=== PATIENT | male | born 1940 | race Caucasian/White ===

== ENCOUNTER 2019-12-26 09:31 | Inpatient (IN) | payer OTHER ==
[~2019-12-26] VITALS: Ht 190.5 cm; Wt 88.3 kg
[~2019-12-26 09:31] MED LIST: ASPIRIN81 M2 PO; FORTAMET1000 MG PO; IMDUR 30 MG TAB30 M1 PO; NOVOLOG100 UNIT/1 SUBQ; PLAVIX 75 MG TA75 M1 PO; PRINZIDE 20-251 EACH PO; VITAMIN D3 COM1 EACH PO
[2019-12-26 09:44] VITALS: BP 142/80
[2019-12-26] MEDS ORDERED: TRESIBA100 UNIT/1 SUBQ (09:51)
[2019-12-26] MEDS ORDERED: TOPROL XL50 MG PO (09:52)
[2019-12-26] MEDS ORDERED: NITROSTAT0.4 M1 SUBLING (09:52)
[2019-12-26 10:08] LABS: ABSOLUTE BASOPHILS 0.1 thou/uL (0.0-0.2); ABSOLUTE EOSINOPHILS 0.3 thou/uL (0.0-0.7); ABSOLUTE LYMPHOCYTES 1.7 thou/uL (0.8-5.3); ABSOLUTE MONOCYTES 0.7 thou/uL (0.0-1.2); ABSOLUTE NEUTROPHILS 6.1 thou/uL (1.6-8.1); BASOPHILS 1.2 %; EOSINOPHILS 2.9 %; HEMATOCRIT 37.3 % (42.0-52.0); HEMOGLOBIN 12.6 gm/dL (14.0-18.0); LYMPHOCYTES 18.8 %; MCH 31.1 pg (26.0-34.0); MCHC 33.8 g/dL (28.0-37.0); MCV 92.1 fL (80.0-100.0); MONOCYTES 7.5 %; MPV 8.9 fl. (7.2-11.1); NUCLEATED RBCS 0 /100WBC; PLATELET COUNT* 262 thou/uL (150-400); POLYS 69.6 %; RBC 4.06 mil/uL (4.50-6.00); RDW-CV 13.7 % (10.5-14.5); WBC 8.8 thou/uL (4.0-11.0)
[2019-12-26 10:13] LABS: CALCIUM 8.6 mg/dL (8.5-10.1); CREATININE 2.2 mg/dL (0.6-1.3); POTASSIUM 4.6 mmol/L (3.5-5.1)
[2019-12-26 10:15] LABS: APTT 25.9 Seconds (25.0-31.3); INR 1.1; PROTIME 11.2 Seconds (9.20-11.50)
[2019-12-26 10:23] LABS: ALBUMIN 3.3 g/dL (3.4-5.0); TOTAL BILIRUBIN 0.6 mg/dL (<0.1-1.0); TOTAL PROTEIN 6.8 g/dL (6.4-8.2)
[2019-12-26 12:18] LABS: URINE BILIRUBIN NEGATIVE (Negative); URINE BLOOD TRACE (Negative); URINE CLARITY CLEAR; URINE COLOR YELLOW; URINE GLUCOSE-RANDOM NEGATIVE (Negative); URINE KETONES NEGATIVE (Negative); URINE LEUKOCYTES-REFLEX NEGATIVE (Negative); URINE NITRITE-REFLEX NEGATIVE (Negative); URINE PROTEIN 2+ (Negative); URINE SPECIFIC GRAVITY >= 1.030 (1.005-1.030); URINE UROBILINOGEN 0.2 E.U./dl (0.2-1.0)
[2019-12-26 12:27] LABS: CASTS None Seen /LPF (None Seen); CRYSTALS None Seen /LPF (None Seen); MUCUS 0-3 Light strn/LPF (None Seen); SQUAMOUS 0-3 Few /LPF (0-3); URINE RBC None Seen /HPF (0-2); URINE WBC-REFLEX None Seen /HPF (0-5)
[2019-12-26 15:15] VITALS: BP 128/67
[2019-12-26 20:00] VITALS: BP 156/80
[2019-12-27] VITALS: BP 158/80
[2019-12-27 04:00] VITALS: BP 173/92
[2019-12-27 05:00] VITALS: BP 169/87
--- NOTE | 2019-12-27 07:34 | NUR ---
ASSUMED CARE OF PT AFTER REPORT AT 1930. PT A&OX3-4 AT THE START OF THE SHIFT. AT MIDNIGHT PT BECAME CONFUSED, FORGETFUL & IMPULSIVE. PT ALSO HAD EPISODE OF HALLUCINATION THAT THE WALL WAS MOVING AND THE CABINET WAS AN ELEVATOR. PT TRACING SR/PVC ON TELE. PT UPSTANDBY. PT DENIES ANY PAIN. PT TRANSFERRED TO RM 231. FALL PRECAUTIONS IN PLACE. CALL LIGHT WITHIN REACH.
[2019-12-27 08:00] VITALS: BP 168/85
--- NOTE | 2019-12-27 10:21 | NUR ---
CM INFORMED THAT THE PT HAD SOME CONFUSION OVERNIGHT. CM CONTACTED THE PT'S DPOA/GRANDDAUGHTER HANNA AND SHE INFORMS THAT THIS IS THE PT'S BASELINE. PT HAS BEEN 'MORE CONFUSED OVER THE PAST MONTH AND WANDERING OUTSIDE OF THE HOME'. PT CURRENTLY RESIDES AT HOME WITH HIS SON, AND HE AND HANNA TAKE TURNS STAYING AT HOME WITH HIM 27/12. PT INDEPENDENT WITH ADL'S, BUT NEEDS REMINDERS ABOUT WHEN TO TAKE MEDS AND EAT. PT USES A WALKER FOR MOBILITY. PT HAS 0 HX OF SNF. PT HAS HX OF HH WITH [facility] AND THE FAMILY IS OPEN TO HH WITH [facility] IF ORDERED AT D/C. CM WILL REMAIN AVAILABLE TO ASSIST AND FOLLOW NEEDED.
--- NOTE | 2019-12-27 11:14 | NUR ---
ASSUMED CARE OF PATIENT THIS AM AT 0730. PATIENT IS ALERT, CONFUSED, IMPULSIVE AND DIFFICULT TO REDIRECT. TELE SHOWS SR TO ST. PATIENT DENIES CHEST PAIN AND SOA. PATIENT IS UP IN THE ROOM FREQUENTLY. GAIT HAS BEEN STEADY THIS AM. PATIENT HAS BEEN ON FALL PRECAUTIONS AND BED ALARM IS ON. WILL CONTINUE TO MONITOR PATIENT SAFETY. CALL LIGHT IS IN REACH. PATIENT DOES NOT USE IT.
[2019-12-27 12:27] VITALS: BP 133/67
--- NOTE | 2019-12-27 13:17 | EKG ---
[place] [address] ELECTROCARDIOGRAM REPORT Name: MIGNON LE Room: [address] IN [facility].#: [id number] Admission: 12/26/19 Attend Phys: Avery Kapoor Discharge: Date of : 40 Date of Service: 12/26/19 0951 Report #: [id number] THIS REPORT FOR: //name// [facility] ED Test Date: 2019-12-26 Test Time: 09:51:23 Pat Name: MIGNON LE Department: Room: [facility] Gender: M Operators Teacher: : 1940 Requested By: Donny Lynch Order Number: [id number] MD: Trey Kenyon Measurements Intervals [place] Rate: 87 P: 37 ND: 205 QRS: 14 QRSD: 121 T: 149 QT: 396 QTc: 477 Interpretive Statements Sinus rhythm Ventricular premature complex Left bundle branch block Baseline wander in lead(s) V5,V6 Compared to ECG 05/07/2016 08:30:12 Left bundle-branch block now present Left ventricular hypertrophy no longer present Myocardial infarct finding no longer present Electronically Signed On 12-27-2019 13:17:24 CDT by Trey Kenyon [email or web address] <ELECTRONICALLY SIGNED> By: Trey Kenyon MD, [facility] 12/27/19 1317 0951 Trey Kenyon MD, [facility] /EPI
--- NOTE | 2019-12-27 16:30 | NUR ---
SOTERO was informed that pt is in need of transfer to [facility] psych. SOTERO faxed referral to [facility]. fax [phone] ph [phone]. SOTERO called intake at [facility] unit and spoke with intake to confirm they received referral and that they are reviewing for possible acceptance if bed available. Dr Kapoor to speak with psychiatrist at [facility]. [facility] to contact unit/nurse if able to accept after hours. Transfer form and ambulance form to be completed as well if accepted and SW placed forms on pt chart. If any updates on status of referral needed at any point, call [phone] which is [facility] unit and ask for intake.
[2019-12-27 17:59] VITALS: BP 142/60
[2019-12-28] VITALS: BP 130/65
[2019-12-28 09:00] VITALS: BP 156/98
--- NOTE | 2019-12-28 12:30 | NUR ---
SW followed up with [facility] at [facility] as they were willing to consider pt if pt still has needs for inpt psych. SW to fax updated information to inpt psych in case of continued need. Team presented pt was somewhat better today due to medications, has supplemental oxygen needs. DC planning psych vs home with family might not be possible vs placement. SW to continue to follow to assist with finalizing safe dc plan.
[2019-12-28 14:32] LABS: ALBUMIN 3.4 g/dL (3.4-5.0); CALCIUM 8.8 mg/dL (8.5-10.1); CREATININE 1.9 mg/dL (0.6-1.3); POTASSIUM 5.3 mmol/L (3.5-5.1); TOTAL BILIRUBIN 0.8 mg/dL (<0.1-1.0); TOTAL PROTEIN 7.1 g/dL (6.4-8.2)
[2019-12-28 14:59] LABS: ABSOLUTE BASOPHILS 0.1 thou/uL (0.0-0.2); ABSOLUTE EOSINOPHILS 0.1 thou/uL (0.0-0.7); ABSOLUTE LYMPHOCYTES 1.1 thou/uL (0.8-5.3); ABSOLUTE MONOCYTES 0.8 thou/uL (0.0-1.2); ABSOLUTE NEUTROPHILS 8.3 thou/uL (1.6-8.1); BASOPHILS 0.9 %; EOSINOPHILS 0.8 %; HEMATOCRIT 39.4 % (42.0-52.0); HEMOGLOBIN 13.2 gm/dL (14.0-18.0); LYMPHOCYTES 10.2 %; MCH 30.9 pg (26.0-34.0); MCHC 33.4 g/dL (28.0-37.0); MCV 92.4 fL (80.0-100.0); MONOCYTES 7.4 %; MPV 9.2 fl. (7.2-11.1); NUCLEATED RBCS 0 /100WBC; PLATELET COUNT* 273 thou/uL (150-400); POLYS 80.7 %; RBC 4.26 mil/uL (4.50-6.00); RDW-CV 13.7 % (10.5-14.5); WBC 10.3 thou/uL (4.0-11.0)
[2019-12-28 16:00] VITALS: BP 120/61
--- NOTE | 2019-12-28 18:24 | NUR ---
PT UP SBA WAS IN THE BED DURING THE AM AND UNCOMFORTABLE THEN WOKE UP AND WOULD NOT SIT STILL PT KEPT MOVING AROUND IN THE ROOM VERY UNSTEADY URINATED ON THE FLOOR MESSED WITH HIS BELONGINGS AND BECOMING AGITATED 2L NC WAS PUT ON PT THIS AM D/T LOW SATS 85 AND BELOW PT HAS DIFFICULTY KEEPING O2 ON AND HAS TO BE REMINDED PT NOW HAS A SITTER PT DISCONTINUED IV THIS AM AND TOO AGITATED TO TRY ANOTHER ONE MAY TRY TOMORROW IF NEED FOR IV LASIX CALL LIGHT IN REACH
[2019-12-28 20:00] VITALS: BP 139/78
[2019-12-29] VITALS: BP 151/76
[2019-12-29 04:00] VITALS: BP 169/67
[2019-12-29 05:18] LABS: HEMATOCRIT 37.4 % (42.0-52.0); HEMOGLOBIN 12.7 gm/dL (14.0-18.0); MCH 30.9 pg (26.0-34.0); MCHC 33.8 g/dL (28.0-37.0); MCV 91.3 fL (80.0-100.0); MPV 9.1 fl. (7.2-11.1); RBC 4.1 mil/uL (4.50-6.00); RDW-CV 13.9 % (10.5-14.5); WBC 8.1 thou/uL (4.0-11.0)
[2019-12-29 05:20] LABS: ALBUMIN 3.3 g/dL (3.4-5.0); MAGNESIUM 1.9 mg/dL (1.8-2.4); POTASSIUM 4.9 mmol/L (3.5-5.1); TOTAL BILIRUBIN 0.8 mg/dL (<0.1-1.0); TOTAL PROTEIN 6.8 g/dL (6.4-8.2)
[2019-12-29 09:00] VITALS: BP 133/70
[2019-12-29 12:16] VITALS: BP 133/65
[2019-12-29 16:27] VITALS: BP 146/52
--- NOTE | 2019-12-29 16:34 | NUR ---
PT ALERT AND ORIENTED X1 DROWSY SLEPT T/O DAY GOT UP A FEW TIMES TO URINATE PT IS UNSTEADY AND REQUIRES SBA ATE VERY WELL TODAY AND DM MEDS STARTED PT IS PLEASANT AND COOPERATIVE CALL LIGHT IN REACH BUT PT DOES NOT USE
[2019-12-29 19:50] VITALS: BP 140/60
[2019-12-30] VITALS: BP 117/65
[2019-12-30 04:00] VITALS: BP 144/75
[2019-12-30 08:19] VITALS: BP 121/63
[2019-12-30 12:31] VITALS: BP 145/60
[2019-12-30 13:42] LABS: ABSOLUTE BASOPHILS 0.1 thou/uL (0.0-0.2); ABSOLUTE EOSINOPHILS 0.5 thou/uL (0.0-0.7); ABSOLUTE LYMPHOCYTES 1.8 thou/uL (0.8-5.3); ABSOLUTE MONOCYTES 0.8 thou/uL (0.0-1.2); BASOPHILS 0.9 %; HEMATOCRIT 40.7 % (42.0-52.0); HEMOGLOBIN 13.5 gm/dL (14.0-18.0); LYMPHOCYTES 19.7 %; MCH 30.7 pg (26.0-34.0); MCHC 33.3 g/dL (28.0-37.0); MCV 92.4 fL (80.0-100.0); MONOCYTES 8.5 %; NUCLEATED RBCS 0 /100WBC; PLATELET COUNT* 291 thou/uL (150-400); POLYS 65.9 %; RBC 4.41 mil/uL (4.50-6.00); WBC 9.1 thou/uL (4.0-11.0)
[2019-12-30 13:49] LABS: CALCIUM 9.3 mg/dL (8.5-10.1); CREATININE 2.3 mg/dL (0.6-1.3); POTASSIUM 4.1 mmol/L (3.5-5.1)
[2019-12-30 14:00] LABS: ALBUMIN 3.5 g/dL (3.4-5.0); MAGNESIUM 1.8 mg/dL (1.8-2.4); TOTAL BILIRUBIN 0.6 mg/dL (<0.1-1.0); TOTAL PROTEIN 7.4 g/dL (6.4-8.2)
[2019-12-30 17:00] VITALS: BP 116/50
--- NOTE | 2019-12-30 19:05 | NUR ---
PT UP IN CHAIR T/O DAY DID HAVE VTACH EPISODES X2 EKG DONE AND PLAN FOR ECHO TOMORROW DISCUSSED WITH DR ADORNO NO S/SX PT DID NOT FEEL IT OR NOTICE THOUGH DISCUSSED WITH HOSPITALIST WELL SON CAME TO VISIT CALL LIGHT IN REACH PLEASANT AND COOPERATIVE UNSTEADY GAIT
[2019-12-30 20:00] VITALS: BP 149/50
[2019-12-31] VITALS: BP 132/51
[2019-12-31 04:00] VITALS: BP 142/72
[2019-12-31 08:00] VITALS: BP 132/66
[2019-12-31 10:19] LABS: CALCIUM 9.2 mg/dL (8.5-10.1); CREATININE 2.4 mg/dL (0.6-1.3)
[2019-12-31 10:37] LABS: CHOLESTEROL 118 mg/dL (<200); HDL CHOLESTEROL 33 mg/dL (>40); LDL CHOLESTEROL 63 mg/dL (<100); TC:HDL 3.6 Ratio (Not establshd); TRIGLYCERIDE 114 mg/dL (<150); VLDL 23 mg/dL (<40)
[2019-12-31 10:38] LABS: SERUM ASSESSMENT Clear
--- NOTE | 2019-12-31 11:12 | EKG ---
[place] [address] ELECTROCARDIOGRAM REPORT Name: MIGNON LE Room: [address] IN .R.#: [id number] Admission: 12/26/19 Attend Phys: Avery Kapoor Discharge: Date of : 40 Date of Service: 12/30/19 1719 Report #: [id number] THIS REPORT FOR: //name// [facility] Test Date: 2019-12-30 Test Time: 17:19:26 Pat Name: MIGNON LE Department: Room: [address] Gender: M Tree Killer: VISH : 1940 Requested By: Avery Kapoor Order Number: [id number] Elina MD: Robert Butterfield Measurements Intervals [place] Rate: 76 P: 22 KS: 186 QRS: -2 QRSD: 119 T: 139 QT: 427 QTc: 481 Interpretive Statements Sinus rhythm LVH with IVCD and secondary repol abnrm Anterior ST elevation, probably due to LVH Borderline prolonged QT interval Compared to ECG 12/26/2019 09:51:23 Left ventricular hypertrophy now present Early repolarization now present Ventricular premature complex(es) no longer present Electronically Signed On 12-31-2019 11:12:08 CDT by Robert Butterfield [email or web address] <ELECTRONICALLY SIGNED> By: Robert Butterfield MD, [facility] 12/31/19 1112 18 18 Robert Butterfield MD, [facility] /EPI
--- NOTE | 2019-12-31 11:13 | EKG ---
[place] [address] ELECTROCARDIOGRAM REPORT Name: MIGNON LE Room: [address] ADM IN .R.#: [id number] Admission: 12/26/19 Attend Phys: Avery Kapoor Discharge: Date of : 40 Date of Service: 12/30/19 1720 Report #: [id number] THIS REPORT FOR: //name// [facility] Test Date: 2019-12-30 Test Time: 17:20:12 Pat Name: MIGNON LE Department: Room: [address] Gender: M Medical Staffing Coordinator: VISH : 1940 Requested By: Avery Kapoor Order Number: [id number] Reading MD: Robert Butterfield Measurements Intervals [place] Rate: 71 P: 41 DC: 180 QRS: -2 QRSD: 125 T: 129 QT: 419 QTc: 456 Interpretive Statements Sinus rhythm Atrial premature complex Possible LVH with associated IVCD Compared to ECG 12/30/2019 17:19:26 Atrial premature complex(es) now present ST (T wave) deviation persists Electronically Signed On 12-31-2019 11:13:24 CDT by Robert Butterfield [email or web address] <ELECTRONICALLY SIGNED> By: Robert Butterfield MD, FAC 12/31/19 1113 1720 1720 Robert Butterfield MD, FAC /EPI
--- NOTE | 2019-12-31 12:10 | NUR ---
SW received call from [facility] and they are considering accepting pt to their memory care unit when pt is ready to dc. They are needing therapy notes and will need covid negative test within 24 to 48 hours of dc. SW to fax therapy notes today and will continue to follow to assist with finalizing safe dc placement possibly for tomorrow if pt medically ready to dc.
[2019-12-31 12:28] VITALS: BP 137/66
--- NOTE | 2019-12-31 13:44 | 2DMMODE ---
[place] [address] 2 D/M-MODE ECHOCARDIOGRAM Name: MIGNON LE Room: [address] IN [facility]#: [id number] Admission: 12/26/19 Attend Phys: Avery Kapoor Discharge: Date of : 40 Date of Service: 12/31/19 1344 Report #: [id number] THIS REPORT FOR: cc: Jessy De León MD, Lin W. MD Holkins, John M. MD [facility] ~ APPROVED REPORT Study performed: 12/31/2019 11:12:54 EXAM: Comprehensive 2D, Doppler, and color-flow Echocardiogram Patient Location: In-Patient Room #: [facility] Status: routine BSA: 2.23 HR: 63 bpm BP: 132/66 mmHg Rhythm: NSR Other Information Study Quality: Good Indications Abnormal ECG 2D Dimensions IVSd: 14.37 (7-11mm) LVOT Diam: 23.16 (18-24mm) LVDd: 61.77 mm PWd: 11.48 (7-11mm) Ascending Ao: 45.50 (22-36mm) LVDs: 53.06 (25-40mm) Aortic Root: 45.82 mm Volumes Left Atrial Volume (Systole) LA ESV Index: 52.60 mL/m2 Aortic Valve AoV Peak Elpidio.: 2.02 m/s AO Peak Gr.: 16.27 mmHg LVOT Max P.54 mmHg AO Mean Gr.: 8.64 mmHg LVOT Mean P.84 mmHg LVOT Max V: 0.62 m/s AO V2 VTI: 37.48 cm LVOT Mean V: 0.43 m/s ALAN (VTI): 1.58 cm2 LVOT V1 VTI: 14.10 cm AI [place]: 2.68 m/s2 [place] [address] 2 D/M-MODE ECHOCARDIOGRAM Name: MIGNON LE Room: [address] IN [facility]#: [id number] Admission: 12/26/19 Attend Phys: Avery Kapoor Discharge: Date of : 40 Date of Service: 12/31/19 1344 Report #: [id number] PHT: 429.85 ms Mitral Valve E/A Ratio: 1.20 MV Decel. Time: 161.61 ms MV E Max Elpidio.: 0.61 m/s MV PHT: 46.87 ms MVA (PHT): 4.69 cm2 TDI E/Lateral E': 5.08 E/Medial E': 5.08 Medial E' Elpidio.: 0.12 m/s Lateral E' Elpidio.: 0.12 m/s Left Ventricle The left ventricle is normal size. There is global hypokinesis of the left ventricle with inferobasilar akinesis. There is normal left ventricular wall thickness. Left ventricular ejection fraction is moderate to severely decreased. LVEF is 25-30%. Grade I - abnormal relaxation pattern. Right Ventricle The right ventricle is normal size. The right ventricular systolic function is normal. Atria Left atrium is moderately dilated. The right atrium size is normal. Aortic Valve Moderate aortic valve sclerosis. Moderate aortic regurgitation. Moderate aortic stenosis. Mitral Valve The mitral valve is normal in structure. Trace mitral regurgitation. No evidence of mitral valve stenosis. Tricuspid Valve The tricuspid valve is normal in structure. Trace tricuspid regurgitation. Unable to assess PA pressure. Pulmonic Valve The pulmonary valve is normal in structure. There is no pulmonic valvular regurgitation[place] [address] 2 D/M-MODE ECHOCARDIOGRAM Name: MIGNON LE Room: [address]#: [id number] Admission: 12/26/19 Attend Phys: Avery Kapoor Discharge: Date of : 40 Date of Service: 12/31/19 1344 Report #: [id number] The aortic root is normal in size. IVC is not well visualized. Pericardium There is no pericardial effusion. <Conclusion> The left ventricle is normal size. There is normal left ventricular wall thickness. Left ventricular ejection fraction is moderate to severely decreased. LVEF is 25-30%. Grade I - abnormal relaxation pattern. The right ventricle is normal size. Left atrium is moderately dilated. The right atrium size is normal. Moderate aortic valve sclerosis. Moderate aortic regurgitation. Moderate aortic stenosis. The mitral valve is normal in structure. Trace mitral regurgitation. The tricuspid valve is normal in structure. There is no pericardial effusion. There is global hypokinesis of the left ventricle with inferobasilar akinesis. <ELECTRONICALLY SIGNED> By: Robert Butterfield MD, FACC 12/31/19 1344 1344 1344 Robert Butterfield MD, FACC /INF
[2019-12-31 16:00] VITALS: BP 118/64
[2019-12-31 20:00] VITALS: BP 128/57
--- NOTE | 2019-12-31 20:04 | NUR ---
RECEIVED REPORT. ASSUMED CARE OF PT AROUND 0730. PT PLEASANT, ORIENTED TO SELF. AM ASSESSMENT AND VITALS COMPLETED CHARTED. MEDS PER EMAR. CIVIL ENGINEERING TEACHER IN PLACE. PT DENIED PAIN OR DISCOMFORT THIS SHIFT. WORKED WITH THERAPIES. CR TRENDING HIGH STILL, SO DC HELD FOR THAT. DC TO MEMORY CARE FACILITY IN THE WORKS. PT WITH GOOD APPETITE TODAY, ABLE TO TAKE A SHOWER WITH ASSISTANCE. PT CURRENTLY WATCHING TV IN BEDSIDE CHAIR. FALL PRECAUTIONS IN PLACE. CALL LIGHT IS WITHIN REACH. HOURLY ROUNDING PERFORMED.
[2020-01-01] VITALS: BP 119/50
[2020-01-01 04:00] VITALS: BP 108/49
[2020-01-01 05:29] LABS: HEMATOCRIT 38.7 % (42.0-52.0); HEMOGLOBIN 12.9 gm/dL (14.0-18.0); MCH 30.6 pg (26.0-34.0); MCHC 33.4 g/dL (28.0-37.0); MCV 91.8 fL (80.0-100.0); MPV 8.8 fl. (7.2-11.1); RBC 4.22 mil/uL (4.50-6.00); RDW-CV 14.3 % (10.5-14.5); WBC 10.4 thou/uL (4.0-11.0)
[2020-01-01 06:04] LABS: ALBUMIN 3.5 g/dL (3.4-5.0); CALCIUM 9.3 mg/dL (8.5-10.1); CREATININE 2.2 mg/dL (0.6-1.3); MAGNESIUM 1.8 mg/dL (1.8-2.4); POTASSIUM 3.6 mmol/L (3.5-5.1); TOTAL BILIRUBIN 0.5 mg/dL (<0.1-1.0); TOTAL PROTEIN 7.3 g/dL (6.4-8.2)
[2020-01-01 07:45] VITALS: BP 174/84
[2020-01-01] MEDS ORDERED: SEROQUEL 25 MG25 M1 PO (08:56)
[2020-01-01] MEDS ORDERED: GLUCOPHAGE1000 MG PO (08:56)
[2020-01-01] MEDS ORDERED: ZYPREXA 5 MG TAB5 M1 PO (08:56)
[2020-01-01] MEDS ORDERED: SINEMET 25-1001 EAC1 PO (08:56)
[2020-01-01] MEDS ORDERED: HUMALOG100 UNIT/1 SUBQ (08:56)
[2020-01-01] MEDS ORDERED: LANTUS SUBQ (08:56)
[2020-01-01] MEDS ORDERED: LASIX 40 MG TAB40 MG PO (08:58)
[2020-01-01 12:00] VITALS: BP 104/44
--- NOTE | 2020-01-01 12:02 | NUR ---
SW received call from pt dtr who stated that the pt family does not want [facility] after all and wanted referral sent to [facility] so SW faxed referral to [facility] and called admissions at facility and left 2 messages requesting call back for status of referral. SW to continue to follow to assist with finalizing safe dc plan for today pending final acceptance of facility and pending covid test result received. [facility] admissions cell phone number: [phone]
[2020-01-01 16:00] VITALS: BP 141/53
--- NOTE | 2020-01-01 18:30 | NUR ---
RECEIVED REPORT. ASSUMED CARE OF PT AROUND 0730. PT A&O X4. AM ASSESSMENT AND VITALS COMPLETED CHARTED. MEDS PER EMAR. PT NPO THIS AM FOR EGD THIS AFTERNOON. PT RETURNED FROM EGD - DIET ADVANCED. PAIN IN RIGHT SHOULDER MANAGED WITH IV PAIN MEDICATION WITH RELIEF. PROPELLER ENGINEER IN PLACE. SON VISITED THIS AFTERNOON. PT HOPEFULL TO GO HOME TOMORROW. PT CURRENTLY RESTING IN BED WATCHING TV. LOW FALL PRECAUTIONS IN PLACE. CALL LIGHT IS WITHIN REACH. HOURLY ROUNDING PERFORMED.
--- NOTE | 2020-01-01 18:50 | NUR ---
RECEIVED REPORT. ASSUMED CARE OF PT AROUND 30. PT A&O X3. AM ASSESSMENT AND VITALS COMPLETED CHARTED. COLD TYPE ARTIST IN PLACE. MEDS PER EMAR. PT SET TO DC TODAY TO LTC FACILITY WHEN PT WENT INTO AFIB RVR. CARDIOLOGY NOTIFIED AND ORDERS RECEIVED AND CARRIED OUT. PT'S HR SLOWED. PT ON 2L PER NC DURING AFIB RVR. APPETITE GOOD THIS SHIFT. UP WITH SBA TO BATHROOM TO VOID, INCONTINENT AT TIMES. ORIENTATION MUCH IMPORVED THIS SHIFT COMPARED TO YESTERDAY. GRANDDAUGHTER UPDATED ON POC THIS AFTERNOON. PT CURRENTLY WATCHING TV IN BED. CALL LIGHT IS WITHIN REACH. HOURLY ROUNDING PERFORMED. FALL PRECAUTIONS IN PLACE.
[2020-01-01 19:50] VITALS: BP 116/56
[2020-01-02] VITALS: BP 106/53
[2020-01-02 04:00] VITALS: BP 97/52
--- NOTE | 2020-01-02 06:54 | NUR ---
AMIO DRIP WAS HELD, COMMUICATED FROM DAY SHIFT THAT PT HR WAS CONTROLLED BEFORE THE DRIP WAS HUNG, WILL COMMUICATE TO ON COMMING SHIFT. PT HR STABLE THROUGHT OUT NIGHT.
--- NOTE | 2020-01-02 07:15 | NUR ---
CHANGE OF SHIFT BEDSDIE REPORT GIVEN PATIENT SEEN AT BEDSIDE, IN BED ASLEEP ASSUMED PATIENT CARE
[2020-01-02 08:00] VITALS: BP 105/55
[2020-01-02 12:00] VITALS: BP 132/56
--- NOTE | 2020-01-02 16:57 | NUR ---
SW received call from pt grgrazynatr Renee providing more options for possible placement: [facility], [facility] and [facility] in [place]. SW to follow up with referrals to check on status of bed availability and assist with finalizing safe dc placement.
[2020-01-02 17:00] VITALS: BP 157/100
[2020-01-02 20:30] VITALS: BP 151/99
[2020-01-03] VITALS: BP 158/59
[2020-01-03 04:00] VITALS: BP 122/53
--- NOTE | 2020-01-03 04:33 | NUR ---
ASSUMED PT CARE AT 1915. NURSING ASSESSMENT COMPLETED AT START OF SHIFT. AFIB ON BLANKET FOLDER. PT VOICED NO CONCERNS THIS SHIFT. VERY IMPULSIVE AT START OF SHIFT AND WHILE AWAKE, FORGETS TO USE CALL LIGHT AND WAIT FOR ASSISSTANCE. EDUCATION ENFORCED THIS SHIFT. HOURLY ROUNDING COMPLETED. HIGH FALL PRECAUTIONS IN PLACE. CALL LIGHT WITHIN REACH.
--- NOTE | 2020-01-03 07:10 | NUR ---
CHANGE OF SHIFT BEDSIDE REPORT GIVEN PATIENT SEEN AT BEDSIDE, IN BED ASLEEP ASSUMED PATIENT CARE
[2020-01-03 08:00] VITALS: BP 150/68
[2020-01-03] MEDS ORDERED: ELIQUIS5 MG PO (08:57)
[2020-01-03] MEDS ORDERED: HYDRALAZINE 2525 MG PO (08:57)
[2020-01-03] MEDS ORDERED: PACERONE 200 M200 M1 PO (08:57)
[2020-01-03 09:20] VITALS: BP 150/68
[2020-01-03 09:36] LABS: CALCIUM 9.2 mg/dL (8.5-10.1); CREATININE 2.2 mg/dL (0.6-1.3); POTASSIUM 4.9 mmol/L (3.5-5.1)
--- NOTE | 2020-01-03 13:53 | NUR ---
SOTERO spoke with pt elizabeth Duran about pt possibility of being able to go to [facility] as referral was sent there and Haylie in admissions at facility was reviewing. Pt elizabeth provided other options of facilities if needed: [facility] that does not have memory care unit, [facility] does not have memory care unit and [facility] might be another option. Then [facility] admissions called and said that they will accept pt today and pt elizabeth to meet with Haylie to sign paperwork and SW to arrange transport as facility does not arrange transport. SOTERO called [facility] and arranged ride for 2:30 to 3 pm and informed nurse and provided number for nurse to call report. SOTERO called pt elizabeth back to inform of the news of dc plan and she was okay with plan and said she would go to sign forms and then called back to say that she needed more time to meet with facility for paperwork and meet with her retail pharmacy manager before she signed any paperwork. SOTERO called ride and pushed time to 5 to 5:[address] Quinteros to discuss the possible delay if paperwork is not completed today. Then Pt elizabeth Duran called back and said that the she came to agreement with the facility and she is in agreement with pt moving to [facility] today. Chart copied for continuation of care. [facility] ph [phone] fax [phone]
[2020-01-03] MEDS ORDERED: LANTUS SUBQ (14:25)
== END 2020-01-03 17:56 | DRG 682 ==
LOC: M.ERS 09:31 → M.TBA-ER 11:39 → M.2W 11:39
PROVIDERS: Family Medicine; Internal Medicine; Registered Nurse; ADMIT Internal Medicine; ATTEND Internal Medicine
DX: N17.0 Acute kidney failure with tubular necrosis (principal); G93.41 Metabolic encephalopathy; I50.23 Acute on chronic systolic (congestive) heart failure; I13.0 Hypertensive heart and chronic kidney disease with heart failure and stage 1 through stage 4 chronic kidney disease, or unspecified chronic kidney disease; I47.1 Supraventricular tachycardia; D68.59 Other primary thrombophilia; E11.649 Type 2 diabetes mellitus with hypoglycemia without coma; F17.220 Nicotine dependence, chewing tobacco, uncomplicated; M10.9 Gout, unspecified; G30.9 Alzheimer's disease, unspecified; F02.80 Dementia in other diseases classified elsewhere, unspecified severity, without behavioral disturbance, psychotic disturbance, mood disturbance, and anxiety; I11.0 Hypertensive heart disease with heart failure; G20 Parkinson's disease; N18.9 Chronic kidney disease, unspecified; E11.22 Type 2 diabetes mellitus with diabetic chronic kidney disease; I35.2 Nonrheumatic aortic (valve) stenosis with insufficiency; I71.2 Thoracic aortic aneurysm, without rupture; I65.23 Occlusion and stenosis of bilateral carotid arteries; I48.91 Unspecified atrial fibrillation; Z20.828 Contact with and (suspected) exposure to other viral communicable diseases; I25.2 Old myocardial infarction; Z88.1 Allergy status to other antibiotic agents; Z79.82 Long term (current) use of aspirin; Z79.899 Other long term (current) drug therapy; Z86.73 Personal history of transient ischemic attack (TIA), and cerebral infarction without residual deficits

== ENCOUNTER 2021-03-28 19:54 | Emergency (ER) | payer OTHER ==
[~2021-03-28] VITALS: Ht 190.5 cm; Wt 113.4 kg
[~2021-03-28 19:54] MED LIST changes: +ELIQUIS5 MG PO; +GLUCOPHAGE1000 MG PO; +HUMALOG100 UNIT/1 SUBQ; +HYDRALAZINE 2525 MG PO; +LANTUS SUBQ; +LASIX 40 MG TAB40 MG PO; +NITROSTAT0.4 M1 SUBLING; +PACERONE 200 M200 M1 PO; +SEROQUEL 25 MG25 M1 PO; +SINEMET 25-1001 EAC1 PO; +TOPROL XL50 MG PO; +TRESIBA100 UNIT/1 SUBQ; +ZYPREXA 5 MG TAB5 M1 PO
[2021-03-28 20:29] LABS: HEMATOCRIT 39.6 % (42.0-52.0); MCH 31.3 pg (26.0-34.0); MCHC 32.9 g/dL (28.0-37.0); MCV 95.1 fL (80.0-100.0); MPV 9.5 fl. (7.2-11.1); RBC 4.16 mil/uL (4.50-6.00); RDW-CV 13.8 % (10.5-14.5); WBC 11.3 thou/uL (4.0-11.0)
[2021-03-28 20:42] LABS: APTT 21.9 Seconds (25.0-31.3); PROTIME 10.3 Seconds (9.20-11.50)
[2021-03-28 20:43] LABS: POTASSIUM 4.8 mmol/L (3.5-5.1)
[2021-03-28 20:48] LABS: ALBUMIN 3.3 g/dL (3.4-5.0); TOTAL BILIRUBIN 0.3 mg/dL (<0.1-1.0); TOTAL PROTEIN 7.8 g/dL (6.4-8.2)
[2021-03-28 22:35] VITALS: BP 195/86
--- NOTE | 2021-03-29 10:05 | EKG ---
[place] [address] ELECTROCARDIOGRAM REPORT Name: MIGNON LE Room: [facility]#: [id number] Admission: 03/28/21 Attend Phys: Discharge: 03/29/21 Date of : 40 Date of Service: 03/28/212007 Report #: [id number] THIS REPORT FOR: //name// [facility] ED Test Date: 2021-03-28 Test Time: 20:08:27 Pat Name: MIGNON LE Department: Room: Gender: Commodities Clerk: : 1940 Requested By: Holly Severino Order Number: [id number] MD: Alcides Ram Measurements Intervals [place] Rate: 56 P: 13 NV: 218 QRS: -15 QRSD: 126 T: 120 QT: 487 QTc: 471 Interpretive Statements Sinus rhythm Borderline prolonged NV interval Left bundle branch block Compared to ECG 12/30/2019 17:20:12 Left bundle-branch block now present Atrial premature complex(es) no longer present Electronically Signed On 03-29-2021 10:04:50 CDT by Alcides Ram [email or web address] <ELECTRONICALLY SIGNED> By: Jc Ram MD, FACC 03/29/21 1004 07 07 Jc Ram MD, FACC /EPI
== END 2021-03-29 01:15 | disposition home or self-care (01) ==
LOC: M.ERS 19:54
PROVIDERS: Personal Emergency Response Attendant
DX: S01.81XA Laceration without foreign body of other part of head, initial encounter (principal); S09.90XA Unspecified injury of head, initial encounter; E11.9 Type 2 diabetes mellitus without complications; Z79.899 Other long term (current) drug therapy; Z87.891 Personal history of nicotine dependence; Z88.2 Allergy status to sulfonamides; W19.XXXA Unspecified fall, initial encounter; Y93.89 Activity, other specified; Y92.89 Other specified places as the place of occurrence of the external cause; Y99.8 Other external cause status

== ENCOUNTER 2021-04-18 12:07 | Emergency (ER) | payer OTHER, MEDICAID ==
[~2021-04-18] VITALS: Ht 182.9 cm; Wt 112.5 kg
--- NOTE | ~2021-04-18 | EMS ---
[address] [address] EMS Patient Care Report Name: MIGNON LE [id number] Admission: 04/18/21 Attend Phys: Discharge: Date of : 40 Report #: [id number] THIS REPORT FOR: //name// Report Transmitted: 04/18/2021 16:36 EMS Care Summary [facility] Raz OR Incident [id number] @ 04/18/2021 11:06 Incident Location [address] [place] [address] Patient MIGNON LE Male, 80 Years 1940 Patient Address [address] [id number] Patient History Endocrine Condition - Other,Unspecified dementia,Parkinson's Disease,Atrial Fibrillation,Hypertension (HTN), Patient Allergies No known allergies, Patient Medications Sinemet, Memantine, Amiodarone, , Metoprolol, Norvasc, Clopidogrel, Vitamin D, Amaryl, Aricept, Depakote, Nitroglycerin, Lorazepam, Levemir, Humalog, Chief Complaint Diabetes related symptoms Disposition Transported No Lights/[place] Dispatch Reason Diabetic Problem Transported To [facility] Narrative [facility] was dispatched to the aforementioned address for a reported combative diabetic. Upon arrival, the pt was being assessed by members from the [address] [address] EMS Patient Care Report Name: MIGNON LE Room: [facility]#: [id number] Admission: 04/18/21 Attend Phys: Discharge: Date of : 40 Report #: [id number] [employer] ([employer]). The pt was completely cooperative and allowed [employer] to check is sugar which was reported to be 49mg/dL. The pt asked for a fruit cup and it was provided for him. Facility staff stated that the pt had been throwing food and trying to bite the staff when the attempted to give him a snack. When the pt's sugar was reassessed it had come up to 53mg/dL. The was alert and oriented, the pt denied pain, and the pt stated he wanted to go to the hospital to see why he was having such radical sugar changes. The pt was assisted to stand and walk to the cot. The pt had sweat through all of his layer and had lost control of his bowel and bladder. The pt did not want to change. The pt walked to the cot where he was secured utilizing the cot seatbelts including the shoulder harness straps. The cot was loaded into the unit without incident. While in the unit, the pt's vitals were assessed as recorded above. The pt was very cooperative and jovial. When report was called, Dr. Wilson ordered to give the pt more sugar. The pt refused oral glucose but accepted a juice box ([employer] Fruit Punch 21g Carbohydrates, 19g Sugar). When the pt's sugar was reassessed it was 74mg/dL. The pt's signature was obtained on the tablet indicating consent for transport, please see below. The pt was transported non-emergency to [facility] ([facility] Emergency Department Room 3. Pt care was transferred to [facility] staff. The pt was assisted to stand and pivot from the cot to the hospital bed, all these things occurring without incident. [facility] in-service and available at the time stated above. RMontes Initial Vitals @11:41P: 60,R: 16,BP: 124/68, @12:00P: 66,R: 16, @11:41GCS: 15, @12:00GCS: 15, @PTAGlucose: 49, @11:28Glucose: 53, Assessments @11:15MENTAL:SKIN:HEENT:LUNG SOUNDS:ABDOMEN:PELVIS//GI:EXTREMITIES:PULSE:NEURO: Impression Diabetic Hypoglycemia Timeline FILLER AND TRIMMER,BP: / M,PULSE: ,RR: R,SPO2: Ox,ETCO2: ,B,PAIN: ,GCS: , 10:30,Call Received 11:06,Dispatch Notified 11:06,Psap Call 11:06,Dispatched 11:06,[place] [address] EMS Patient Care Report Name: MIGNON LE [facility] [id number] Admission: 04/18/21 Attend Phys: Discharge: Date of : 40 Report #: [id number] 11:08,On Scene 11:15,At Patient 11:28,BP: / M,PULSE: ,RR: R,SPO2: Ox,ETCO2: ,B,PAIN: ,GCS: , 11:41,BP: 124/68 M,PULSE: 60,RR: 16 R,SPO2: Ox,ETCO2: ,BG: ,PAIN: ,GCS: , 11:41,BP: / M,PULSE: ,RR: R,SPO2: Ox,ETCO2: ,BG: ,PAIN: ,GCS: 15, 11:45,Depart Scene 12:00,BP: / M,PULSE: 66,RR: 16 R,SPO2: Ox,ETCO2: ,BG: ,PAIN: ,GCS: , 12:00,BP: / M,PULSE: ,RR: R,SPO2: Ox,ETCO2: ,BG: ,PAIN: ,GCS: 15, 12:03,At Destination 12:17,Call Closed Disclaimer v1.1 Copyright 2020 [employer] This EMS Care Summary contains data elements from the applicable legal record (which may be displayed differently). It is designed to provide pertinent information for the following purposes: continuity of care, clinical quality, and state data reporting. The complete legal record is available to ED staff and administrators of the receiving hospital in [employer]'s Patient Tracker. All data is provided "as is."
[2021-04-18] MEDS ORDERED: NAMENDA 10 MG T10 MG PO (12:21)
[2021-04-18] MEDS ORDERED: NORVASC10 MG PO (12:22)
[2021-04-18] MEDS ORDERED: GLIMEPIRIDE4 MG PO (12:23)
[2021-04-18] MEDS ORDERED: DEPAKOTE ER500 M1 PO (12:24)
[2021-04-18] MEDS ORDERED: ARICEPT10 M1 PO (12:24)
[2021-04-18] MEDS ORDERED: LORAZEPAM 0.50.5 MG PO (12:25)
[2021-04-18 12:36] LABS: ABSOLUTE EOSINOPHILS 0.1 thou/uL (0.0-0.7); ABSOLUTE LYMPHOCYTES 1.3 thou/uL (0.8-5.3); ABSOLUTE MONOCYTES 0.9 thou/uL (0.0-1.2); ABSOLUTE NEUTROPHILS 6.8 thou/uL (1.6-8.1); BASOPHILS 0.5 %; EOSINOPHILS 1.2 %; HEMATOCRIT 39.1 % (42.0-52.0); HEMOGLOBIN 12.9 gm/dL (14.0-18.0); LYMPHOCYTES 14.6 %; MCH 30.8 pg (26.0-34.0); MCHC 32.9 g/dL (28.0-37.0); MCV 93.8 fL (80.0-100.0); MPV 8.9 fl. (7.2-11.1); NUCLEATED RBCS 0 /100WBC; PLATELET COUNT* 239 thou/uL (150-400); POLYS 73.7 %; RBC 4.17 mil/uL (4.50-6.00); RDW-CV 13.5 % (10.5-14.5); WBC 9.2 thou/uL (4.0-11.0)
[2021-04-18 12:45] LABS: CALCIUM 8.9 mg/dL (8.5-10.1); CREATININE 2.8 mg/dL (0.6-1.3); POTASSIUM 3.7 mmol/L (3.5-5.1)
[2021-04-18 12:58] LABS: TOTAL BILIRUBIN 0.3 mg/dL (<0.1-1.0); TOTAL PROTEIN 7.5 g/dL (6.4-8.2)
--- NOTE | 2021-04-18 14:36 | EKG ---
[place] [address] ELECTROCARDIOGRAM REPORT Name: MIGNON LE Room: [facility]#: [id number] Admission: 04/18/21 Attend Phys: Discharge: Date of : 40 Date of Service: 04/18/21 1217 Report #: [id number] THIS REPORT FOR: //name// [facility] ED Test Date: 2021-04-18 Test Time: 12:17:29 Pat Name: MIGNON LE Department: Room: Gender: Manager Strategic Sourcing: [facility] : 1940 Requested By: Mario Wilson Order Number: [id number] MD: Trey Kenyon Measurements Intervals [place] Rate: 54 P: 0 UT: 62 QRS: -19 QRSD: 135 T: 114 QT: 511 QTc: 485 Interpretive Statements Sinus rhythm Possible left atrial enlargement IVCD, consider atypical LBBB Compared to ECG 03/28/2021 20:08:27 No significant changes noted Electronically Signed On 04-18-2021 14:36:39 FINGERPRINT CLASSIFIER by Trey Kenyon [email or web address] <ELECTRONICALLY SIGNED> By: Trey Kenyon MD, FACC 04/18/21 1436 1217 1217 Trey Kenyon MD, [facility] /EPI
[2021-04-18 16:37] LABS: URINE BILIRUBIN NEGATIVE (Negative); URINE BLOOD NEGATIVE (Negative); URINE CLARITY CLEAR; URINE COLOR YELLOW; URINE GLUCOSE-RANDOM 1+ (Negative); URINE KETONES NEGATIVE (Negative); URINE LEUKOCYTES-REFLEX NEGATIVE (Negative); URINE NITRITE-REFLEX NEGATIVE (Negative); URINE PROTEIN 1+ (Negative); URINE SPECIFIC GRAVITY >= 1.030 (1.005-1.030); URINE UROBILINOGEN 0.2 E.U./dl (0.2-1.0)
[2021-04-18 21:40] VITALS: BP 131/60
== END 2021-04-18 21:42 | disposition home or self-care (01) ==
LOC: M.ERS 12:07
PROVIDERS: Emergency Medicine Emergency Medical Services
DX: E11.649 Type 2 diabetes mellitus with hypoglycemia without coma (principal); I25.2 Old myocardial infarction; F03.90 Unspecified dementia, unspecified severity, without behavioral disturbance, psychotic disturbance, mood disturbance, and anxiety; Z79.899 Other long term (current) drug therapy; Z79.4 Long term (current) use of insulin; Z88.1 Allergy status to other antibiotic agents; Z87.891 Personal history of nicotine dependence